=== PATIENT | female | born 1935 | race Caucasian/White ===

== ENCOUNTER 2017-08-13 20:32 | Inpatient (IN) | payer OTHER ==
[~2017-08-13] VITALS: Ht 165.1 cm; Wt 74.4 kg
[2017-08-13 20:32] VITALS: BP_SYST 167
[2017-08-13] MEDS ORDERED: LEVO5TAB13 PO (20:45)
[2017-08-13 21:15] LABS: BASOPHILS % (AUTO) 0.9 % (0.0-2.0); EOSINOPHILS # (AUTO) 0.1 K/uL (0.0-0.4); EOSINOPHILS % (AUTO) 1.8 % (0.0-4.0); HEMATOCRIT 41.5 % (36-48); HEMOGLOBIN 14.1 g/dL (12.0-16.0); LYMPHOCYTES # (AUTO) 1.3 K/uL (1.0-5.5); MEAN CORPUSCULAR HEMOGLOBIN 32 pg (27-31); MEAN CORPUSCULAR HGB CONC 34 % (32-36); MEAN CORPUSCULAR VOLUME 94 fL (79.0-98.0); MONOCYTES # (AUTO) 0.3 K/uL (0.0-1.0); MONOCYTES % (AUTO) 6.6 % (1.7-9.3); NEUTROPHILS # (AUTO) 3.4 K/uL (1.8-7.7); NEUTROPHILS % (AUTO) 65.7 % (40.0-70.0); PLATELET COUNT (AUTO) 234 K/uL (130-430); RED BLOOD CELL COUNT(AUTO) 4.39 MIL/uL (4.2-6.2); RED CELL DISTRIBUTION WIDTH 12.6 % (9.0-15.0); WHITE BLOOD COUNT (AUTO) 5.1 K/uL (4.8-10.8)
[2017-08-13] MEDS ORDERED: NACL 0.9% 1,000 ML IV ONE (21:16)
[2017-08-13 21:21] LABS: BILIRUBIN,URINE NEGATIVE (NEGATIVE); BLOOD, URINE NEGATIVE (NEGATIVE); CLARITY/URINE CLEAR (CLEAR); COLOR,URINE YELLOW (YELLOW); GLUCOSE,URINE NEGATIVE (NEGATIVE); KETONES,URINE NEGATIVE (NEGATIVE); LEUKOCYTE ESTERASE ,URINE 2+ (NEGATIVE); NITRITE, URINE NEGATIVE (NEGATIVE); PROTEIN URINE NEGATIVE (NEGATIVE); UROBILINOGEN,URINE 0.2 (0.2-1.0)
[2017-08-13 21:25] LABS: ANION GAP 7 (5-15); CALCIUM 9.1 mg/dL (8.4-11.0); CHLORIDE 97 mmol/L (98-107); CREATININE 0.65 mg/dL (0.55-1.30); GLUCOSE 109 mg/dL (70-99); POTASSIUM 4.4 mmol/L (3.5-5.1); SODIUM SERUM 131 mmol/L (136-145); UREA NITROGEN, BLOOD 15 mg/dL (8-21)
[2017-08-13 21:29] LABS: ALANINE AMINOTRANSFERASE 57 U/L (12-78); ALBUMIN 3.9 g/dL (3.4-4.8); ALCOHOL, BLOOD 3 mg/dL (<10); ASPARTATE AMINOTRANSFERASE 39 U/L (10-37); TOTAL BILIRUBIN 1.1 mg/dL (0.0-1.0)
[2017-08-13 21:31] LABS: BACTERIA,URINE FEW /HPF (None Seen); MUCUS,URINE None Seen /LPF (None Seen); RBC,URINE 0-3 /HPF (0-3)
[2017-08-13 21:35] LABS: BARBITURATE, URINE NEGATIVE (NEG <=200); BENZODIAZEPINE, URINE NEGATIVE (NEG <=150); CANNABINOID, URINE NEGATIVE (NEG <=50); COCAINE, URINE NEGATIVE (NEG <=150); METHAMPHETAMINES SCREEN,URINE NEGATIVE (NEG <=500); OPIATE, URINE NEGATIVE (NEG <=100); PHENCYCLIDINE SCREEN,URINE NEGATIVE (NEG <=25); UR TRICYCLIC ANTIDEPRESSANTS NEGATIVE (NEG <=300); URINE AMPHETAMINE NEGATIVE (NEG <=500); URINE METHADONE NEGATIVE (NEG <=200); URINE OXYCODONE SCREEN NEGATIVE (NEG <=100); URINE PROPOXYPHENE SCREEN NEGATIVE (NEG <=300)
[2017-08-13] MEDS ORDERED: ATEN-41 PO (21:44)
[2017-08-13] MEDS ORDERED: cefTRIAXone 1 GM IVPB PREMIX 50 ML IV ONE (22:30)
[2017-08-13] MEDS ORDERED: ONDANSETRON HCL 4 MG/2 ML VIAL IVP ONE (22:45)
[2017-08-13] MEDS ORDERED: D5/0.45 NS 1,000 ML IV SCH (22:45)
[2017-08-13 23:12] VITALS: BP_SYST 157
[2017-08-14 08:50] VITALS: BP_SYST 131
[2017-08-14] MEDS ORDERED: ASPIRIN 81 MG TAB.CHEW PO SCH (09:00)
[2017-08-14] MEDS ORDERED: ASPIRIN 325 MG TABLET (ECOTRIN) PO ONE (09:15)
[2017-08-14 09:57] LABS: THYROID STIMULATING HORMONE 1.43 uIu/mL (0.34-4.82)
[2017-08-14 12:15] VITALS: BP_SYST 129
[2017-08-14] MEDS ORDERED: LORazepam 2 MG/ML VIAL IVP ONE (12:45)
[2017-08-14] MEDS ORDERED: CLOPIDOGREL BISULFATE 75 MG TABLET PO ONE (15:30)
[2017-08-14 16:15] VITALS: BP_SYST 124
[2017-08-14] MEDS ORDERED: IOHEXOL 350 mgI/mL, 150 ML INFUS..BTL IV ONE (16:59)
[2017-08-14 20:00] VITALS: BP_SYST 132
[2017-08-14] MEDS ORDERED: cefTRIAXone 1 GM in D5W 50 ML IV SCH (22:00)
[2017-08-15 01:09] VITALS: BP_SYST 118
[2017-08-15 08:17] VITALS: BP_SYST 141
[2017-08-15] MEDS ORDERED: CLOPIDOGREL BISULFATE 75 MG TABLET PO SCH (09:00)
[2017-08-15] MEDS ORDERED: ASPIRIN 325 MG TABLET (ECOTRIN) PO SCH (09:00)
[2017-08-15 12:00] VITALS: BP_SYST 149
[2017-08-15 12:49] VITALS: BP_SYST 149
[2017-08-15] MEDS ORDERED: ASPI-862 PO (12:58)
[2017-08-15] MEDS ORDERED: CLOP75TA2 PO (12:58)
[2017-08-15] MEDS ORDERED: LIP10 PO (12:59)
== END 2017-08-15 14:03 | disposition home or self-care (01) | DRG 65 ==
LOC: SED 20:32 → STU 22:28
PROVIDERS: ADMIT Internal Medicine Hospice and Palliative Medicine; ATTEND Internal Medicine Hospice and Palliative Medicine
DX: I63.232 Cerebral infarction due to unspecified occlusion or stenosis of left carotid arteries (principal); N39.0 Urinary tract infection, site not specified; I48.2 Chronic atrial fibrillation; Z60.2 Problems related to living alone; Z96.643 Presence of artificial hip joint, bilateral; I27.20 Pulmonary hypertension, unspecified; I10 Essential (primary) hypertension; Z79.01 Long term (current) use of anticoagulants; Z91.14 Patient's other noncompliance with medication regimen; Z79.899 Other long term (current) drug therapy; Z87.891 Personal history of nicotine dependence; Z90.710 Acquired absence of both cervix and uterus; Z90.49 Acquired absence of other specified parts of digestive tract; Z82.3 Family history of stroke; Z79.82 Long term (current) use of aspirin; Z86.73 Personal history of transient ischemic attack (TIA), and cerebral infarction without residual deficits
CPT/HCPCS: 36415; 70450-TC; 70496; 70498; 70551; 71045; 80053; 80061; 80307; 81000-TC; 83605; 83880; 84443-TC; 84484; 85025; 85610-TC; 85730-TC; 87040-TC; 87086; 93005; 93306; 93880; 96361; 96365; 96375; 99285; G0482; J0696; J2060; J2405; J7060; Q9967

== ENCOUNTER 2020-12-26 07:43 | Emergency (ER) | payer OTHER ==
[~2020-12-26] VITALS: Ht 165.1 cm; Wt 83.0 kg
[~2020-12-26 07:43] MED LIST: ASPI-862 PO; ATEN-41 PO; CLOP75TA2 PO; LEVO5TAB13 PO; LIP10 PO
[2020-12-26 08:18] VITALS: BP_SYST 162
--- NOTE | 2020-12-26 08:18 | NUR ---
Placed in room 1 . Placed on nuclear monitoring technician, blood pressure machine and pulse oximeter. To gown for exam. Side rails up. Report given to
--- NOTE | 2020-12-26 08:25 | NUR ---
# 20 gauge angiocath placed to LAC. Use of asceptic technique. Opsite placed over site. Blood return noted. Blood for lab drawn from site. Flushed with 10 cc of normal saline. No evidence of infiltration noted. Patient tolerated well.
--- NOTE | 2020-12-26 08:30 | NUR ---
ER at bedside examining patient.
--- NOTE | 2020-12-26 08:32 | NUR ---
PT BIB SON FROM HOME C/O KIM SINCE LAST NIGHT. STATES SHE HAS A HX OF A-FIB, CVA 08/13/2017, HTN, HLD. STATES LAST NIGHT IKM WAS 10/10 BUT PAIN UPON ARRIVAL IS 4/10. PT IS AMBULATORY, AAOX4, V/S STABLE. Addendum: 12/26/20 at 0856 by [email or web address] PT BIB SON FROM HOME C/O KIM SINCE LAST NIGHT. STATES SHE HAS A HX OF A-FIB, CVA 08/13/2017, HTN, HLD. STATES LAST NIGHT KIM WAS 10/10 BUT PAIN UPON ARRIVAL IS 4/10. PT IS AMBULATORY, AAOX4, V/S STABLE. DENIES NUMBNESS, TINGLING, WEAKNESS. NO FACIAL DROOP.
--- NOTE | 2020-12-26 08:37 | NUR ---
Patient transported to radiology via gurney, accompanied by jonnie.
--- NOTE | 2020-12-26 08:40 | NUR ---
Blood collected and sent to lab.
--- NOTE | 2020-12-26 08:45 | NUR ---
Patient transported to radiology via GURNEY, accompanied by STAFF.
[2020-12-26 09:01] LABS: BASOPHILS # (AUTO) 0.1 K/uL (0.0-0.2); BASOPHILS % (AUTO) 0.8 % (0.0-2.0); EOSINOPHILS # (AUTO) 0.2 K/uL (0.0-0.4); EOSINOPHILS % (AUTO) 2.4 % (0.0-4.0); HEMATOCRIT 38.2 % (36-48); HEMOGLOBIN 13.1 g/dL (12.0-16.0); LYMPHOCYTES # (AUTO) 0.8 K/uL (1.0-5.5); LYMPHOCYTES % (AUTO) 11.4 % (20.5-51.5); MEAN CORPUSCULAR HEMOGLOBIN 32 pg (27-31); MEAN CORPUSCULAR HGB CONC 34 % (32-36); MEAN CORPUSCULAR VOLUME 92 fL (79.0-98.0); MONOCYTES # (AUTO) 0.8 K/uL (0.0-1.0); MONOCYTES % (AUTO) 11.5 % (1.7-9.3); NEUTROPHILS # (AUTO) 5.3 K/uL (1.8-7.7); NEUTROPHILS % (AUTO) 73.9 % (40.0-70.0); PLATELET COUNT (AUTO) 239 K/uL (130-430); RED BLOOD CELL COUNT(AUTO) 4.13 MIL/uL (4.2-6.2); RED CELL DISTRIBUTION WIDTH 13.3 % (9.0-15.0); WHITE BLOOD COUNT (AUTO) 7.2 K/uL (4.8-10.8)
--- NOTE | 2020-12-26 09:02 | NUR ---
Returned from radiology, back to [facility].
[2020-12-26 09:04] LABS: ANION GAP 3 (5-15); CALCIUM 9.2 mg/dL (8.4-11.0); CHLORIDE 96 mmol/L (98-107); CREATININE 0.66 mg/dL (0.55-1.30); GLUCOSE 106 mg/dL (70-99); POTASSIUM 4.3 mmol/L (3.5-5.1); SODIUM SERUM 127 mmol/L (136-145); UREA NITROGEN, BLOOD 13 mg/dL (8-21)
[2020-12-26 09:06] LABS: PROTHROMBIN TIME 10.9 SECS (9.5-12.5)
[2020-12-26 09:09] LABS: ALANINE AMINOTRANSFERASE 23 U/L (12-78); ALBUMIN 3.3 g/dL (3.4-4.8); ASPARTATE AMINOTRANSFERASE 19 U/L (10-37); TOTAL BILIRUBIN 1.6 mg/dL (0.0-1.0)
--- NOTE | 2020-12-26 09:24 | NUR ---
ULTRASOUND AT THE BEDSIDE
[2020-12-26] MEDS ORDERED: traMADol HCL HCL 50 MG TABLET (ULTRAM) PO ONE (09:30)
--- NOTE | 2020-12-26 09:50 | NUR ---
PT SITTING UP IN [facility], AWAKE, ALERT, EVEN UNLABORED BREATHING, NO DISTRESS NOTED, DENIES PAIN
[2020-12-26] MEDS ORDERED: FURO-150 PO (09:54)
[2020-12-26] MEDS ORDERED: POLY17PO4 PO (09:54)
[2020-12-26] MEDS ORDERED: TRAM50TA PO (09:54)
[2020-12-26 10:10] VITALS: BP_SYST 138
--- NOTE | 2020-12-26 10:11 | NUR ---
Patient given written and verbal discharge instructions and verbalizes understanding. ER MD discussed with patient the results and treatment provided. Patient in stable condition. ID arm band removed. IV catheter removed intact and dressing applied, no active bleeding. Rx of LASIX, MIRALAX AND TRAMADOL given. Patient educated on pain management and to follow up with PMD. Pain Scale 0/10. Opportunity for questions provided and answered. Medication side effect fact sheet provided.
== END 2020-12-26 10:10 | disposition home or self-care (01) ==
LOC: SED 07:43
DX: G44.209 Tension-type headache, unspecified, not intractable (principal); I87.8 Other specified disorders of veins; E87.1 Hypo-osmolality and hyponatremia; I48.91 Unspecified atrial fibrillation; Z79.899 Other long term (current) drug therapy
CPT/HCPCS: 36415; 70450-TC; 71045; 76376; 80053; 83880; 84484; 85025; 85610-TC; 85730-TC; 93005; 93971; 99285